=== PATIENT | female | born 1995 | race African-American/Black ===

== ENCOUNTER 2016-10-20 21:14 | Emergency (ER) | payer OTHER ==
[~2016-10-20] VITALS: Ht 154.9 cm; Wt 94.8 kg
[~2016-10-20 21:14] MED LIST: AMOXICILLIN PO; DEPO-PROVE150 MG/1 M IM; FLONASE 0.05% N16 G1 INH; MOTRIN600 MG PO; NAPROSYN250 M1 PO; NAPROXEN PO
[2016-10-20] MEDS ORDERED: NO MEDICATIONS (21:41)
== END 2016-10-20 23:59 | disposition home or self-care (01) ==
LOC: SED 21:14
DX: R59.1 Generalized enlarged lymph nodes (principal); F41.9 Anxiety disorder, unspecified; Z88.1 Allergy status to other antibiotic agents; Z88.8 Allergy status to other drugs, medicaments and biological substances
CPT/HCPCS: 87651; 99283